=== PATIENT | female | born 1995 ===

== ENCOUNTER 2021-02-10 06:08 | Day surgery (SDC) | payer OTHER ==
[~2021-02-10 06:08] MED LIST: LUTERA-28 TABL1 EACH PO
[2021-02-10] MEDS ORDERED: NAPR500T14 PO (10:27)
[2021-02-10] MEDS ORDERED: MORGIDOX100 MG PO (10:27)
== END 2021-02-10 13:30 | disposition home or self-care (01) ==
LOC: CIR.AMB 06:08
PROVIDERS: ATTEND Obstetrics & Gynecology
DX: D25.0 Submucous leiomyoma of uterus (principal); N84.0 Polyp of corpus uteri; Z20.822 Contact with and (suspected) exposure to COVID-19